=== PATIENT | female | born 1960 | race American Indian/Alaskan Native ===

== ENCOUNTER 2016-12-11 10:09 | Outpatient (CLI) | payer MEDICARE ==
--- NOTE | 2016-12-11 13:39 | Mammography Report ---
Screening mammogram: Routine views demonstrate focal asymmetries in the lateral and inferior left breast as well as in the lateral right breast. Diffuse vascular calcifications are present bilaterally. The overall fibroglandular pattern otherwise is generally symmetric and unremarkable with mild fibroglandular tissue density. The right axilla is obscured by pacer. CAD used. Impression: Bilateral asymmetries. Recommendation: Prior exams are being requested for comparison before final recommendation. BI-RADS CATEGORY: 0 = Needs additional imaging evaluation ACR BI-RADS MAMMOGRAPHIC CODES: 0 = Needs additional imaging evaluation; 1 = Negative; 2 = Benign; 3 = Probably benign; 4 = Suspicious; 5 = Malignant; 6 = Known biopsy-proven malignancy COMMENT: 1. Dense breast tissue, i.e., adenosis, fibrocystic changes, etc., may obscure an underlying neoplasm. 2. Approximately 10% of cancers are not detected with mammography. 3. A negative mammography report should not delay biopsy if a clinically suspicious mass is present.
== END 2016-12-11 10:10 | disposition home or self-care (01) ==
LOC: MAMMO 10:09
PROVIDERS: ATTEND Internal Medicine
DX: Z12.31 Encounter for screening mammogram for malignant neoplasm of breast (principal)
CPT/HCPCS: 77067; G0202